=== PATIENT | female | born 1975 | race Hispanic/Latino ===

== ENCOUNTER 2018-01-16 09:53 | Emergency (ER) | payer SELFPAY ==
[2018-01-16 12:09] LABS: Bilirubin,Urine NEG (Negative); Blood,Urine NEG (Negative); Color,Urine Yellow (Yellow); Hyaline Casts,Urine 1 /LPF; Mucus,Urine FEW /HPF; Protein,Urine <15 mg/dL mg/dL (Negative); Urobilinogen,Urine < 2.0 mg/dL (<2.0); WBC,Urine < 1.0 /HPF (0.0-6.0)
[2018-01-16 12:16] LABS: HCG Qualitative,Urine Negative (Negative)
[2018-01-16] MEDS ORDERED: IMODIUM PO ONE (13:01)
[2018-01-16] MEDS ORDERED: ALUM-MAG HYDROX-SIMETH 200-200-20MG/5ML PO ONE (13:01)
[2018-01-16] MEDS ORDERED: ZOFRAN ODT PO ONE (13:01)
[2018-01-16] MEDS ORDERED: LIDOCAINE VISCOUS 2% PO ONE (13:01)
--- NOTE | 2018-01-16 13:10 | Emergency Department Report ---
Blank Doc - Documentation Documentation: 42 yo female with a past medical history bipolar, depression, previous cholecystectomy presents to the Hospital complaining of abdominal pain, nausea, vomiting, diarrhea, sweats, and generalized pain 1 day. Patient has not had Suboxone in the last 2 days because of lack of insurance coverage. She is currently at the [facility] Exam: Abdomen mild generalized tenderness No active vomiting Cardiovascular regular rate and rhythm Lungs clear to auscultation Labs ordered, UA reviewed and did not reveal Zofran, Imodium, GI cocktail ordered Mid-level to follow
[2018-01-16 13:21] LABS: Basophils % (Auto) 0.1 % (0.0-1.8); Eosinophils # (Auto) 0.1 K/mm3 (0.0-0.4); Eosinophils % (Auto) 1.5 % (0.0-4.3); Hematocrit 36.8 % (30.3-42.9); Hemoglobin 12.2 gm/dl (10.1-14.3); Lymphocytes # (Auto) 0.6 K/mm3 (1.2-5.4); Lymphocytes % (Auto) 7.5 % (13.4-35.0); Mean Corpuscular HGB Conc 33 % (30-34); Mean Corpuscular Hemoglobin 29 pg (28-32); Mean Corpuscular Volume 88 fl (79-97); Monocytes # (Auto) 0.4 K/mm3 (0.0-0.8); Monocytes % (Auto) 4.8 % (0.0-7.3); Platelet Count 271 K/mm3 (140-440); Red Blood Count 4.17 M/mm3 (3.65-5.03); Red Cell Distribution Width 14.7 % (13.2-15.2)
[2018-01-16 13:36] LABS: Alanine Aminotransferase 45 units/L (7-56); Albumin 4.2 g/dL (3.9-5); BUN/Creatinine Ratio 30; Blood Urea Nitrogen 15 mg/dL (7-17); Hemolysis Index 13; Lipase 23 units/L (13-60)
--- NOTE | 2018-01-16 14:48 | Emergency Department Report ---
Vomiting/Diarrhea - HPI Chief Complaint: Abdominal Pain Stated Complaint: VOMITING/STOMACH PAIN Time Seen by Provider: 01/16/18 12:57 Duration: 1 Day Severity: mild Nausea/Vomiting Severity: Mild Diarrhea Severity: None Pain Severity: None Symptoms: Yes Able to Tolerate Fluids, No Watery Diarrhea, No Bloody diarrhea, No Fever, No Recent Unusual Foods, No Recent Untreated Water, No Recent use of Antibiotics, No Family w/ Similar Symptoms, No Contacts w/ Similar Symptoms, No Rash, No Hematuria, No Recent URI Symptoms Other History: This is a 42-year-old female presents with nausea, vomiting, diarrhea and abdominal pain for 1 day. Patient is currently in rehab at [facility] and off suboxone for 3 days. Patient states vomiting and diarrhea started last night. She have appointment with [place] [facility] this Sunday for management of substance abuse. Patient states she is currently not taking anything. She is waiting for insurance approval. Denies chest pain or shortness of breath. ED Review of Systems ROS: Stated complaint: VOMITING/STOMACH PAIN Other details as noted in HPI Constitutional: denies: chills, fever Respiratory: denies: cough, shortness of breath, wheezing Cardiovascular: denies: chest pain, palpitations Gastrointestinal: abdominal pain, nausea, vomiting. denies: diarrhea Neurological: denies: headache, weakness, paresthesias Psychiatric: denies: anxiety, depression ED Past Medical Hx - Past Medical History Previous Medical History?: Yes Hx Psychiatric Treatment: Yes (bipolar/depression) - Surgical History Past Surgical History?: Yes Hx Cholecystectomy: Yes - Social History Smoking Status: Never Smoker Substance Use Type: Methamphetamines, Other - Medications Home Medications: Home Medications Medication Instructions Recorded Confirmed Last Taken Type Ondansetron [Zofran Odt] 4 mg PO TID #9 tab.rapdis 01/16/18 Unknown Rx Vomiting Diarrhea Exam - Exam General: Vital signs noted. No distress. Alert and acting appropriately. HEENT: Yes Moist Mucous Membranes, No Pharyngeal Erythema, No Pharyngeal Exudates, No Rhinorrhea, No Conjuctival Injection, No Frontal Tenderness, No Maxillary Tenderness Neck: No Adenopathy, No Rigidity Lungs: Yes Clear Lung Sounds, Yes Good Air Exchange, No Wheezes, No Stridor, No Cough, No Nasal Flaring, No Retractions, No Use of Accessory Muscles Heart exam: Regular: Yes, Murmur: No, Tachycardia: No Abdomen: Tenderness: No, Peritoneal Signs: No, Distention: No, Hyperactive Bowel sounds: No Skin exam: Rash: No, Edema: No, Normal turgor: Yes Neurologic: Alert and oriented, no deficits. Musculoskeletal: Unremarkable. ED Course Vital Signs 01/16/18 10:10 Temperature 97.6 F Pulse Rate 66 Respiratory 20 Rate Blood Pressure 114/66 O2 Sat by Pulse 100 Oximetry ED Medical Decision Making - Lab Data Result diagrams: 01/16/18 13:11 01/16/18 13:11 Lab Results 01/16/18 01/16/18 01/16/18 Range/Units 11:35 13:11 13:11 WBC 8.6 (4.5-11.0) K/mm3 RBC 4.17 (3.65-5.03) M/mm3 Hgb 12.2 (10.1-14.3) gm/dl Hct 36.8 (30.3-42.9) % MCV 88 (79-97) fl MCH 29 (28-32) pg MCHC 33 (30-34) % RDW 14.7 (13.2-15.2) % Plt Count 271 (140-440) K/mm3 Lymph % (Auto) 7.5 L (13.4-35.0) % [place] % (Auto) 4.8 (0.0-7.3) % Eos % (Auto) 1.5 (0.0-4.3) % Baso % (Auto) 0.1 (0.0-1.8) % Lymph # 0.6 L (1.2-5.4) K/mm3 [place] # 0.4 (0.0-0.8) K/mm3 Eos # 0.1 (0.0-0.4) K/mm3 Baso # 0.0 (0.0-0.1) K/mm3 Seg Neutrophils % 86.1 H (40.0-70.0) % Seg Neutrophils # 7.4 (1.8-7.7) K/mm3 Sodium 136 L (137-145) mmol/L Potassium 4.2 (3.6-5.0) mmol/L Chloride 99.2 (98-107) mmol/L Carbon Dioxide 25 (22-30) mmol/L Anion Gap 16 mmol/L BUN 15 (7-17) mg/dL Creatinine 0.5 L (0.7-1.2) mg/dL Estimated GFR > 60 ml/min BUN/Creatinine Ratio 30 % Glucose 136 H (65-100) mg/dL Calcium 9.0 (8.4-10.2) mg/dL Total Bilirubin 0.20 (0.1-1.2) mg/dL AST 43 H (5-40) units/L ALT 45 (7-56) units/L Alkaline Phosphatase 58 (35-129) units/L Total Protein 7.3 (6.3-8.2) g/dL Albumin 4.2 (3.9-5) g/dL Albumin/Globulin Ratio 1.4 % Lipase 23 (13-60) units/L Urine Color Yellow (Yellow) Urine Turbidity Slightly-cloudy (Clear) Urine pH 5.0 (5.0-7.0) Ur Specific [place] 1.023 (1.003-1.030) Urine Protein <15 mg/dl (Negative) mg/dL Urine Glucose (UA) Neg (Negative) mg/dL Urine Ketones Neg (Negative) mg/dL Urine Blood Neg (Negative) Urine Nitrite Neg (Negative) Urine Bilirubin Neg (Negative) Urine Urobilinogen < 2.0 (<2.0) mg/dL Ur Leukocyte Esterase Neg (Negative) Urine WBC (Auto) < 1.0 (0.0-6.0) /HPF Urine RBC (Auto) 4.0 (0.0-6.0) /HPF U Epithel Cells (Auto) 1.0 (0-13.0) /HPF Hyaline Casts 1 /LPF Urine Mucus Few /HPF Urine HCG, Qual Negative (Negative) - Medical Decision Making Patient was examined by me and Dr. Montiel in fast track. Vitals are normal and patient is in no acute distress. Labs obtained, slight elevation in LFT's. Patient informed of results. Start zofran for nausea associated with withdrawal syndrome. Patient will return to [facility] and f/u with [facility] on Sunday schedule appointment for refills of Suboxone. Patient discharged home in stable condition. Follow up with PCP in 2-3 days. Critical care attestation.: If time is entered above; I have spent that time in minutes in the direct care of this critically ill patient, excluding procedure time. ED Disposition Clinical Impression: Nausea and vomiting in adult, Elevated liver enzymes Withdrawal syndrome Qualifiers: Substance type: other psychoactive substance Qualified Code(s): F19.939 - Other psychoactive substance use, unspecified with withdrawal, unspecified Disposition: DC-01 TO HOME OR SELFCARE Is pt being admited?: No Does the pt Need Aspirin: No Condition: Stable Instructions: Abdominal Pain (ED) Additional Instructions: Follow-up with [facility] for Suboxone refills. If nausea and vomiting are not improving as discussed follow-up with primary care provider. Prescriptions: Ondansetron [Zofran Odt] 4 mg PO TID #9 tab.rapdis Referrals: [facility] [Other] - 3-5 Days Time of Disposition: 14:54 Print Language: TURKISH
[2018-01-16 15:16] VITALS: BP 138/72
== END 2018-01-16 15:15 | disposition home or self-care (01) ==
LOC: ED 09:53
DX: F15.93 Other stimulant use, unspecified with withdrawal (principal); R74.8 Abnormal levels of other serum enzymes; Z90.49 Acquired absence of other specified parts of digestive tract
CPT/HCPCS: 36415; 80053; 81001; 81025; 83690; 85025; 99283; Q0162

== ENCOUNTER 2018-01-28 19:10 | Emergency (ER) | payer MEDICARE ==
[2018-01-28 20:08] LABS: Basophils # (Auto) 0.1 K/mm3 (0.0-0.1); Basophils % (Auto) 1.2 % (0.0-1.8); Eosinophils # (Auto) 0.2 K/mm3 (0.0-0.4); Eosinophils % (Auto) 3.6 % (0.0-4.3); Hematocrit 34.6 % (30.3-42.9); Hemoglobin 11.8 gm/dl (10.1-14.3); Lymphocytes # (Auto) 1.4 K/mm3 (1.2-5.4); Lymphocytes % (Auto) 22.2 % (13.4-35.0); Mean Corpuscular HGB Conc 34 % (30-34); Mean Corpuscular Hemoglobin 29 pg (28-32); Mean Corpuscular Volume 85 fl (79-97); Monocytes # (Auto) 0.8 K/mm3 (0.0-0.8); Platelet Count 366 K/mm3 (140-440); Red Blood Count 4.05 M/mm3 (3.65-5.03); Red Cell Distribution Width 14.7 % (13.2-15.2)
[2018-01-28 20:18] LABS: BUN/Creatinine Ratio 30; Blood Urea Nitrogen 21 mg/dL (7-17); Calcium 9.5 mg/dL (8.4-10.2); Hemolysis Index 11
[2018-01-28 20:32] LABS: Bacteria,Urine 2+ /HPF (Negative); Bilirubin,Urine NEG (Negative); Blood,Urine SM (Negative); Color,Urine Yellow (Yellow); Mucus,Urine 1+ /HPF; Protein,Urine <15 mg/dL mg/dL (Negative); Urobilinogen,Urine < 2.0 mg/dL (<2.0)
[2018-01-28 20:45] LABS: Benzodiazepines Screen,Urine PRESUMPTIVE NEGATIVE; Cannabinoid Screen,Urine PRESUMPTIVE NEGATIVE; Cocaine Screen,Urine PRESUMPTIVE NEGATIVE; Methadone Screen,Urine PRESUMPTIVE NEGATIVE; Opiate Screen,Urine PRESUMPTIVE NEGATIVE
[2018-01-28 21:24] LABS: Amphetamine Screen,Urine PRESUMPTIVE POSITIVE
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
[2018-01-28 22:09] VITALS: BP 134/81
== END 2018-01-28 22:36 | disposition home or self-care (01) ==
LOC: ED 19:10
DX: H66.41 Suppurative otitis media, unspecified, right ear (principal); H60.501 Unspecified acute noninfective otitis externa, right ear; F31.9 Bipolar disorder, unspecified; F17.200 Nicotine dependence, unspecified, uncomplicated; Z90.49 Acquired absence of other specified parts of digestive tract
CPT/HCPCS: 36415; 69200; 80048; 80307; 81001; 85025; 99284; G0480; 80320

== ENCOUNTER 2019-09-30 22:49 | Emergency (ER) | payer MEDICARE ==
[2019-09-30] MEDS ORDERED: LORazepam 1 MG TAB PO ONE (23:02)
[2019-09-30 23:08] VITALS: BP 121/76
--- NOTE | 2019-09-30 23:13 | Emergency Department Report ---
HPI - General PUI?: No Time Seen by Provider: 09/30/19 22:55 - HPI HPI: Room 5 Patient is a 44-year-old female present with a chief complaint medical clearance for methamphetamine abuse. The patient states she went to [facility] to enter rehab program for methamphetamine abuse but was sent here for medical clearance. The patient states she is tired of living her current lifestyle with methamphetamine abuse. The patient states someone has "black magic" over her and there are also demons attacking her. ED Past Medical Hx - Past Medical History Previous Medical History?: Yes Hx Psychiatric Treatment: Yes (bipolar/depression) - Surgical History Past Surgical History?: Yes Hx Cholecystectomy: Yes Additional Surgical History: Tracheostomy - Family History Family history: no significant - Social History Smoking Status: Never Smoker Substance Use Type: Methamphetamines - Medications Home Medications: Home Medications Medication Instructions Recorded Confirmed Last Taken Type Ondansetron [Zofran Odt] 4 mg PO TID #9 tab.rapdis 01/16/18 Unknown Rx Amoxicillin [Trimox CAP] 500 mg PO Q8H #30 capsule 01/28/18 Unknown Rx Ofloxacin 0.3% [Floxin 0.3% Otic] 5 drops OT BID #1 bottle 01/28/18 Unknown Rx ED Review of Systems ROS: Stated complaint: MEDICAL ASSESSMENT Other details as noted in HPI Constitutional: no symptoms reported Physical Exam - Physical Exam Vital Signs: Vital Signs 09/30/19 23:00 Temperature 98.0 F Pulse Rate 75 Respiratory 18 Rate Blood Pressure 121/76 Blood Pressure 121/76 [Left] O2 Sat by Pulse 99 Oximetry Physical Exam: GENERAL: The patient is well-developed well-nourished female sitting on stretcher not appearing to be in acute distress. [] HEENT: Normocephalic. Atraumatic. Extraocular motions are intact. Patient has moist mucous membranes. NECK: Supple. Trachea midline CHEST/LUNGS: Clear to auscultation. There is no respiratory distress noted. HEART/CARDIOVASCULAR: Regular. There is no tachycardia. There is no gallop rub or murmur. ABDOMEN: Abdomen is soft, nontender. Patient has normal bowel sounds. There is no abdominal distention. SKIN: There is no rash. There is no edema. There is no diaphoresis. NEURO: The patient is awake, alert, and oriented. The patient is cooperative. Patient appears slightly anxious. The patient has normal speech MUSCULOSKELETAL: There is no evidence of acute injury. ED Course Vital Signs 09/30/19 23:00 Temperature 98.0 F Pulse Rate 75 Respiratory 18 Rate Blood Pressure 121/76 Blood Pressure 121/76 [Left] O2 Sat by Pulse 99 Oximetry ED Medical Decision Making - Lab Data Result diagrams: 09/30/19 23:10 09/30/19 23:10 Laboratory Tests 09/30/19 09/30/19 09/30/19 23:10 23:10 23:10 WBC 6.8 RBC 3.61 L Hgb 10.6 Hct 31.2 MCV 87 MCH 29 MCHC 34 RDW 15.3 H Plt Count 333 Lymph % (Auto) 29.6 [place] % (Auto) 9.1 H Eos % (Auto) 5.0 H Baso % (Auto) 1.3 Lymph # 2.0 [place] # 0.6 Eos # 0.3 Baso # 0.1 Seg Neutrophils % 55.0 Seg Neutrophils # 3.7 Sodium 141 Potassium 3.2 L Chloride 103.7 Carbon Dioxide 25 Anion Gap 16 BUN 16 Creatinine 0.6 L Estimated GFR > 60 BUN/Creatinine Ratio 27 Glucose 91 Calcium 9.0 Total Creatine Kinase 230 H CK-MB (CK-2) 3.9 CK-MB (CK-2) Rel Index 1.6 Troponin T < 0.010 HCG, Qual Plasma/Serum Alcohol < 0.01 09/30/19 23:10 WBC RBC Hgb Hct MCV MCH MCHC RDW Plt Count Lymph % (Auto) [place] % (Auto) Eos % (Auto) Baso % (Auto) Lymph # [place] # Eos # Baso # Seg Neutrophils % Seg Neutrophils # Sodium Potassium Chloride Carbon Dioxide Anion Gap BUN Creatinine Estimated GFR BUN/Creatinine Ratio Glucose Calcium Total Creatine Kinase CK-MB (CK-2) CK-MB (CK-2) Rel Index Troponin T HCG, Qual Negative Plasma/Serum Alcohol - EKG Data -: EKG Interpreted by Me EKG shows normal: sinus rhythm Rate: normal - EKG Data When compared to previous EKG there are: previous EKG unavailable Interpretation: normal EKG - Differential Diagnosis Methamphetamine abuse Critical care attestation.: If time is entered above; I have spent that time in minutes in the direct care of this critically ill patient, excluding procedure time. ED Disposition Clinical Impression: Methamphetamine abuse Disposition: DC/TX-70 ANOTHER TYPE HLTHCARE Is pt being admited?: No Does the pt Need Aspirin: No Condition: Stable Time of Disposition: 02:00 (d/c to [facility])
[2019-09-30 23:24] LABS: Basophils # (Auto) 0.1 K/mm3 (0.0-0.1); Basophils % (Auto) 1.3 % (0.0-1.8); Eosinophils # (Auto) 0.3 K/mm3 (0.0-0.4); Hemoglobin 10.6 gm/dl (10.1-14.3); Lymphocytes % (Auto) 29.6 % (13.4-35.0); Monocytes # (Auto) 0.6 K/mm3 (0.0-0.8); Monocytes % (Auto) 9.1 % (0.0-7.3)
[2019-09-30 23:42] LABS: Hematocrit 31.2 % (30.3-42.9); Mean Corpuscular HGB Conc 34 % (30-34); Mean Corpuscular Volume 87 fl (79-97); Platelet Count 333 K/mm3 (140-440); Red Blood Count 3.61 M/mm3 (3.65-5.03); Red Cell Distribution Width 15.3 % (13.2-15.2)
[2019-09-30 23:52] LABS: Creatine Kinase MB 3.9 ng/mL (0.0-4.0)
[2019-09-30 23:53] LABS: BUN/Creatinine Ratio 27; Blood Urea Nitrogen 16 mg/dL (7-17); Hemolysis Index 2
== END 2019-10-01 08:02 | disposition home or self-care (01) ==
LOC: ED 22:49
DX: F19.10 Other psychoactive substance abuse, uncomplicated (principal); F31.9 Bipolar disorder, unspecified; Z79.899 Other long term (current) drug therapy; Z90.49 Acquired absence of other specified parts of digestive tract
CPT/HCPCS: 36415; 80048; 80320; 82550; 82553; 84484; 84703; 85025; 93005; 99283; G0480